=== PATIENT | female | born 1940 | race Caucasian/White ===

== ENCOUNTER 2016-05-10 11:25 | Emergency (ER) | payer OTHER ==
[2016-05-10 11:44] VITALS: RESP 16; O2SAT 97
--- NOTE | 2016-05-10 12:25 | EDPHY ---
H & P Stated Complaint: PTOSIS OF R EYE, POSITIVE FLU FRIDAY Time Seen by Provider: 05/10/16 11:42 - Personal History Current Tetanus/Diphtheria Vaccine: Yes Tetanus Vaccine Date: < 10 YEARS - Medical/Surgical History Hx Asthma: No Hx Chronic Respiratory Disease: No Hx Diabetes: No Hx Cardiac Disease: No Hx Renal Disease: No Hx Cirrhosis: No Hx Alcoholism: No Hx HIV/AIDS: No Hx Splenectomy or Spleen Trauma: No Other PMH: GERD LUMPECTOMY 2011 - Social History Smoking Status: Never smoked Constitutional: Initial Vital Signs Temperature (C) 37.1 C 05/10/16 11:41 Heart Rate 94 05/10/16 11:41 Respiratory Rate 16 05/10/16 11:41 Blood Pressure 120/74 05/10/16 11:41 O2 Sat (%) 97 05/10/16 11:41 O2 Delivery Mode Room Air Allergies/Adverse Reactions: timolol [Timolol] Allergy (Verified 01/31/12 18:35) DEPRESSION bees Allergy (Uncoded 01/31/12 18:35) LOCAL SWELLING BETA BLOCKERS Allergy (Uncoded 01/31/12 18:35) DEPRESSION Home Medications: Medication Instructions Recorded FEXOFENADINE HCL 180 mg PO DAILY PRN 12/23/13 Aspirin [Aspirin 81mg (OTC)] 81 mg PO DAILY #30 tab 12/24/13 Medical Decision Making ED Course/Re-evaluation: CHIEF COMPLAINT: Ptosis of right eye. HISTORY OF PRESENT ILLNESS: The patient is a 75-year-old female diagnosed with influenza on Friday and with a history of ptosis. She was prescribed Tamiflu and Tessalon Pearles for her sickness and now has a resurgence of her ptosis. She had her ptosis fixed surgically initially and had no problems until she began to take these medications. She admits associated pain in the right side of her jaw. She denies rash, headache, or other complaints. REVIEW OF SYSTEMS: A 10 point review of systems was performed and is negative with the exception of the elements mentioned in the history of present illness. PHYSICAL EXAM: HR, BP, O2 Sat, RR. Temp noted General Appearance: Alert, well hydrated, appropriate, and non-toxic appearing. Head: Atraumatic without scalp tenderness or obvious injury Eyes: Ptosis of right eyelid. Pupils equal, round, reactive to light and accommodation, EOMI, no trauma, no injection. Ears: Clear bilaterally, no perforation, normal landmarks Nose: Atraumatic, no rhinorrhea, clear. Throat: There is no erythema or exudates, no lesions, normal tonsils, mucus membranes moist. Neck: Supple, 2+ carotid upstroke, nontender, no lymphadenopathy. Respiratory: No retractions, no distress, no wheezes, and no accessory muscle use. Lungs are clear to auscultation bilaterally. Cardiovascular: Regular rate and rhythm, no murmurs, rubs, or gallops. Bilateral carotid, radial, dorsalis pedis, and posterior tibial pulses intact. Good capillary refill all extremities. Gastrointestinal: Abdomen is soft, nontender, non-distended, no masses, no rebound, no guarding, no peritoneal signs. Musculoskeletal: Normal active ROM of all extremities, atraumatic. Neurological: Alert, appropriate, and interactive. The patient has normal DTRs and non-focal cranial nerves, motor, sensory, and cerebellar exam. Skin: No rashes, good turgor, no nodules on palpation. Past medical history:Ptosis. Past surgical history:Ptosis repair. Family history:Non-contributory. Social history:Here with . DIFFERENTIAL DIAGNOSIS: The differential diagnosis for the patient includes, but is not limited to, medication side effect, Lee's Palsy, ptosis exacerbation. MEDICAL DECISION MAKIN-year-old female with a history of ptosis presents with a reoccurrence of right eye ptosis. She was diagnosed with the flu on Friday by her doctor and prescribed Tamiflu and Tessalon Pearls. When she began to take these medications her ptosis, which had been previously surgically repaired, returned. She denies headache, dizziness, or other neurological deficits. There is no indication of Lee's Palsy. She does have mild jaw pain which may or may not be related. On exam her cranial nerves are all intact. She can lift her eyelid with conscious effort but the eyelid droops otherwise. 1245: Reassessed patient. I recommended she follow up with her primary care provider and her bio medical technician if her ptosis does not resolve. She is comfortable with the plan and understands this episode today does not represent Lee's Palsy or other dangerous neurological process. I answered all of her questions. She was given return precautions prior to discharge. Departure - Departure Disposition: Home, Routine, Self-Care Clinical Impression: Ptosis Condition: Good Instructions: Ptosis (ED) Additional Instructions: Follow up with your primary care provider and bio medical technician next week for reevaluation. Return to the emergency department if you experience serious worsening of condition. Referrals: Magdalena Ching MD [Primary Care Provider] - As per Instructions Report Scribed for: Miky Galdamez Report Scribed by: Sunil Hernandez Date of Report: 05/10/16 Time of Report: 12:25
[2016-05-10 12:57] VITALS: BP 122/74; PULSE 92; TEMP 98.6
== END 2016-05-10 12:57 | disposition home or self-care (01) ==
DX: H02.401 Unspecified ptosis of right eyelid (principal)

== ENCOUNTER → 2016-09-18 | Outpatient (CLI) | payer OTHER | LOC: FIMAGING 14:48 | PROVIDERS: ATTEND Internal Medicine | DX: Z13.820 Encounter for screening for osteoporosis (principal); M81.0 Age-related osteoporosis without current pathological fracture; Z78.0 Asymptomatic menopausal state; Z85.3 Personal history of malignant neoplasm of breast ==

== ENCOUNTER → 2016-10-07 | Outpatient (CLI) | payer OTHER | LOC: FIMAGING 14:53 | PROVIDERS: ATTEND Internal Medicine Hematology & Oncology | DX: Z12.39 Encounter for other screening for malignant neoplasm of breast (principal); N63 Unspecified lump in breast; Z85.3 Personal history of malignant neoplasm of breast; Z92.3 Personal history of irradiation | CPT/HCPCS: 76641; G0206 ==

== ENCOUNTER → 2017-02-28 | Outpatient (CLI) | payer OTHER | LOC: FIMAGING 13:47 | PROVIDERS: ATTEND Internal Medicine Hematology & Oncology | DX: Z12.31 Encounter for screening mammogram for malignant neoplasm of breast (principal); Z85.3 Personal history of malignant neoplasm of breast; Z80.3 Family history of malignant neoplasm of breast | CPT/HCPCS: G0202 ==

== ENCOUNTER → 2018-04-01 | Outpatient (CLI) | payer OTHER | END | disposition home or self-care (01) | LOC: FIMAGING 13:40 | PROVIDERS: ATTEND Internal Medicine Hematology & Oncology | DX: Z12.31 Encounter for screening mammogram for malignant neoplasm of breast (principal); Z85.3 Personal history of malignant neoplasm of breast; Z80.3 Family history of malignant neoplasm of breast ==